=== PATIENT | male | born 1950 | race American Indian/Alaskan Native ===

== ENCOUNTER 2017-01-22 13:07 | Day surgery (SDC) | payer MEDICARE ==
[2017-01-22] MEDS: NACL 0.9% 1000 ML 1,000 ML IV SCH ×2 (15:43→17:28)
[2017-01-22] MEDS ORDERED: DIPRIVAN 10 MG/ML IV ONE ×4 (16:28→18:09)
[2017-01-22] MEDS ORDERED: XYLOCAINE MPF 2% ONE (17:00)
[2017-01-22] MEDS ORDERED: WATER FOR IRRIG STERILE ONE (17:12)
[2017-01-22] MEDS ORDERED: WATER FOR IRRIG STERILE IR ONE (17:12)
--- NOTE | 2017-01-22 17:37 | Anesthesia Day of Surgery ---
Anesthesia Day of Surgery - Day of Surgery Patient Examined: Yes Patient H&P Reviewed: Yes Patient is NPO: Yes
--- NOTE | 2017-01-22 17:37 | Anesthesia Consultation ---
Anesthesia Consult and Med Hx Date of service: 01/22/17 - Airway Anesthetic Teeth Evaluation: Good ROM Head & Neck: Adequate Mental/Hyoid Distance: Adequate Mallampati Class: Class II Intubation Access Assessment: Probably Good - Pulmonary Exam CTA: Yes - Cardiac Exam Cardiac Exam: RRR - Pre-Operative Health Status ASA Pre-Surgery Classification: ASA2 Proposed Anesthetic Plan: MAC - Pulmonary Hx Smoking: No - Cardiovascular System Hx Hypertension: Yes - Central Nervous System Hx Psychiatric Problems: No - Other Systems Hx Cancer: No - Additional Comments Anesthesia Medical History Comments: NAC
--- NOTE | 2017-01-22 18:45 | Operative Report ---
Operative Report Operative Report: Date of procedure: 01/22/2017 Procedure: Colonoscopy with Endoscopic Mucosal Resection of 2 Large ascending Polyps, Closure of polyp removal defect with multiple hemoclips, Multiple Hot Biopsy Polypectomies of sigmoid colon polyps, Ablation of diminutive Sigmoid colon polyp and Ablation of Multiple Rectal Polyps. Attending physician: Abner Conklin MD Bit Tapper: Abner Conklin MD Indication: Patient is a 66-year-old male who presents for colorectal cancer screening. This colonoscopy serves to evaluate patient for colorectal cancer screening. Consent: Informed consent was obtained after advising the patient and family regarding nature of this procedure, its indications, potential benefits as well as possible complications including but not limited to bleeding perforation and adverse reaction to medication, infection as well as other cardiopulmonary complications. An informed written and verbal consent was then obtained after due opportunity was provided for questions and answers. Monitoring: Patient was monitored continuously with pulse oximetry and electrocardiographic recordings as well as blood pressure recordings. Vital signs remained stable throughout this procedure with no untoward events. Preoperative assessment: Patient was assessed immediately prior to this procedure for capacity to tolerate monitored anesthesia care and moderate sedation as well as general anesthesia. Patient's ASA classification is 2, Mallampati class is 2, Hyomental distance is 3. Instrument: AmberPoint[employer] video colonoscope Medications: Propofol given intravenously in divided doses. For details please refer to anesthesia records. Description of procedure: Patient was placed in the left lateral decubitus position after achieving sedation, a digital rectal examination was performed following which the colonoscope was introduced into the anal verge and advanced to the cecum which was identified by the cecal valve, the appendiceal orifice, as well as by the cecal strap and direct transillumination. The colonoscope was subsequently withdrawn with careful inspection of all mucosal surfaces. Patient tolerated this procedure well and was subsequently taken to the recovery room. The following findings were noted. Findings: Patient's preparation was very poor. Patient has substantial retained stool in every segment of the colon beginning in the cecum where patient had densely adherent thick liquid stool and semi-formed stool. Although these areas were irrigated as much as possible, it was felt that flat lesions could be easily missed due to the suboptimal preparation. In the mid ascending colon, patient had 2 sessile polyps measuring approximately 2-3 cm each. Both polyps were injected saline in the submucosal space and removed completely by snare electrocautery. Subsequently, the edges of the polyps were cauterized. The defect created from removal of the polyps was then closed using multiple hemoclips. Both polyps were then retrieved. Following this, as the colonoscope was withdrawn and the procedure was very technically difficult due to substantial retained stool and moderate tortuosity of the colon. Although the colon was carefully irrigated with sterile water on withdrawal of the colonoscope. In the sigmoid colon, patient had multiple flat polyps and sessile polyps. These polyps were about 8 and all measured between 5-8 mm. All polyps were retrieved after hot biopsy polypectomy was performed on each of them. This polyp base for all of the polyps was cauterized. Following this, there were adjacent diminutive flat polyps in the sigmoid colon that were completely ablated. Patient also had diminutive diverticula in the sigmoid colon. In the rectum, patient had multiple diminutive flat polyps that were completely ablated. On the retroflex view at the anal verge patient had internal hemorrhoids. Impression: Multiple ascending colon polyps, status post endoscopic mucosal resection with complete resection of the polyps. Multiple sigmoid colon polyp status post hot biopsy polypectomy and ablation. Multiple rectal polyp status post ablation. Mild colonic diverticulosis Substantial retained stool with poor colonoscopic preparation . Internal hemorrhoids. Plan: Follow pathology report If the patient has invasive cancer in the ascending colon that has gone beyond the submucosa, patient will require resection. Otherwise, patient must have a repeat colonoscopy in 6 months given the suboptimal preparation with poor colonoscopic preparation and retained stool and poor visualization of the colon and also given multiple polyps noted on the examination. High-fiber diet. Follow up as an outpatient in 2 weeks
[2017-01-22] MEDS ORDERED: APRESOLINE ONE (19:23)
[2017-01-22 19:48] VITALS: BP 166/83
--- NOTE | 2017-01-22 20:29 | Post Anesthesia Evaluation ---
- Post Anesthesia Evaluation Patient Participated: Yes Airway Patent: Yes Stable Respiratory Function: Yes Nausea/Vomiting: No Temp > 96.8F: Yes Pain Manageable: Yes Adequeate Hydration: Yes Anesthesia Complications: No Block Receding Appropriately: Not Applicable Patient on Ventilator: No
--- NOTE | 2017-01-22 20:56 | Discharge Summary ---
Short Stay Discharge Plan Activity: advance as tolerated Weight Bearing Status: Weight Bear as Tolerated Diet: regular Additional Instructions: Post Sedation D/C Instructions When you return home you may resume your regular diet unless otherwise directed. -Go directly home from the hospital and rest quietly. You may resume normal activities tomorrow. -Do NOT drive, return to work, operate any machinery or make any important personal or business decisions today. -Do NOT drink any alcohol or take nerve or sleeping drugs. They add to the effects of the medicine still present in your body.
== END 2017-01-22 13:08 | disposition home or self-care (01) ==
LOC: GIO 13:07
PROVIDERS: ATTEND Internal Medicine Gastroenterology
DX: Z12.11 Encounter for screening for malignant neoplasm of colon (principal); D12.2 Benign neoplasm of ascending colon; K63.5 Polyp of colon; K57.30 Diverticulosis of large intestine without perforation or abscess without bleeding; K64.8 Other hemorrhoids; Z98.890 Other specified postprocedural states; I10 Essential (primary) hypertension; Z88.0 Allergy status to penicillin
CPT/HCPCS: 45381; 45384; 45385; 45388; 88305; J0360; J2704; J7030